=== PATIENT | male | born 1975 | race Caucasian/White ===

== ENCOUNTER 2017-01-05 04:15 | Emergency (ER) | payer BC ==
[2017-01-05] MEDS ORDERED: Morphine INJ* 4 MG/ML 1 ML SYRINGE IV ONE (05:03)
[2017-01-05] MEDS ORDERED: Ondansetron INJ* 2 MG/ML VIAL IV ONE (05:03)
[2017-01-05] MEDS ORDERED: NS 0.9% 1000 ML* 1,000 ML IV ONE (05:03)
[2017-01-05 05:26] LABS: Hematocrit 46 % (42-52); Hemoglobin 15.3 g/dl (14.0-18.0); Mean Corpuscular HGB Conc 33 g/dl (31-36); Mean Corpuscular Hemoglobin 29 pg (27-31); Mean Corpuscular Volume 88 fL (80-94); Mean Platelet Volume 8 um3 (7.4-10.4); Red Blood Count 5.24 10^6/ul (4.0-5.4); Red Cell Distribution Width 13 % (10.5-15); White Blood Count 12.3 10^3/ul (3.5-10.8)
[2017-01-05 05:43] LABS: Albumin 4.1 g/dL (3.2-5.2); BUN/Creatinine Ratio 14.4 (8-20); C Reactive Protein 4.64 mg/L (< 5.00); Calcium 9.5 mg/dL (8.6-10.3); EGFR African American 118.4 (>60); EGFR Non-African American 92.1 (>60); Magnesium 2.1 mg/dL (1.9-2.7); Potassium 4.2 mmol/L (3.5-5.0); Total Bilirubin 0.7 mg/dL (0.2-1.0); Total Protein 7.1 g/dL (6.4-8.9)
[2017-01-05 06:24] VITALS: BP 155/90
--- NOTE | 2017-01-19 23:46 | ED ---
Kenrick Berger Anna, scribed for Thomas Morel MD on 01/05/17 at 0427 . GI/ HPI - HPI Summary HPI Summary: Patient is a 41 y/o male coming to [facility] presenting with sudden onset of constant abdominal pain that began at 0300 this morning. He describes the severity of the pain as 4/10. The pain is discrete in the center of his abd. The pain was somewhat alleviated following one episode of nausea and emesis. He reports never having experienced similar pain before. The pain was not alleviated by moving around. Denies diarrhea, dysuria. Tonight he ate macaroni and cheese and a hot dog with mustard. - History of Current Complaint Stated Complaint: VOMITING/ABD PAIN Hx Obtained From: Patient Onset/Duration: Started Hours Ago, Still Present Timing: Constant Severity: Moderate Current Severity: Moderate - Allergy/Home Medications Allergies/Adverse Reactions: Allergies Allergy/AdvReac Type Severity Reaction Status Date / Time Jermyn Allergy Anaphylatic Verified 01/15/17 07:33 Shock PMH/Surg Hx/FS Hx/Imm Hx Endocrine/Hematology History: Denies: Hx Diabetes, Hx Thyroid Disease Cardiovascular History: Denies: Hx Hypertension Respiratory History: Denies: Hx Asthma, Hx Chronic Obstructive Pulmonary Disease (COPD) GI History: Denies: Hx Ulcer Infectious Disease History: Denies: Hx Hepatitis, Hx Human Immunodeficiency Virus (HIV) - Family History Known Family History: Negative: Diabetes - Social History Alcohol Use: Daily Alcohol Amount: 2-4 BEERS/DAY Hx Substance Use: Yes Substance Use Type: Reports: Marijuana Hx Tobacco Use: No Smoking Status (MU): Never Smoked Tobacco Have You Smoked in the Last Year: No Review of Systems Positive: Abdominal Pain, Vomiting, Nausea. Negative: Diarrhea Negative: dysuria All Other Systems Reviewed And Are Negative: Yes Physical Exam Vital Signs On Initial Exam: Initial Vitals Temp Pulse Resp BP Pulse Ox 98.7 F 78 16 150/96 98 01/05/17 04:39 01/05/17 04:39 01/05/17 04:39 01/05/17 04:39 01/05/17 04:39 Diagnostics - Vital Signs Vital Signs Temp Pulse Resp BP Pulse Ox 01/05/17 06:22 77 15 155/90 01/05/17 06:03 16 01/05/17 05:43 74 153/96 97 01/05/17 05:02 76 144/79 97 01/05/17 05:00 76 97 01/05/17 04:41 78 98 01/05/17 04:39 98.7 F 78 16 150/96 98 - Laboratory Lab Results: Lab Results 01/05/17 01/05/17 01/05/17 Range/Units 05:17 05:17 05:17 WBC 12.3 H (3.5-10.8) 10^3/ul RBC 5.24 (4.0-5.4) 10^6/ul Hgb 15.3 (14.0-18.0) g/dl Hct 46 (42-52) % MCV 88 (80-94) fL MCH 29 (27-31) pg MCHC 33 (31-36) g/dl RDW 13 (10.5-15) % Plt Count 147 L (150-450) 10^3/ul MPV 8 (7.4-10.4) um3 Neut % (Auto) 79.6 (38-83) % Lymph % (Auto) 12.1 L (25-47) % [place] % (Auto) 7.3 (1-9) % Eos % (Auto) 0.8 (0-6) % Baso % (Auto) 0.2 (0-2) % Absolute Neuts (auto) 9.8 H (1.5-7.7) 10^3/ul Absolute Lymphs (auto) 1.5 (1.0-4.8) 10^3/ul Absolute Monos (auto) 0.9 H (0-0.8) 10^3/ul Absolute Eos (auto) 0.1 (0-0.6) 10^3/ul Absolute Basos (auto) 0 (0-0.2) 10^3/ul Absolute Nucleated RBC 0 10^3/ul Nucleated RBC % 0 Sodium 138 (133-145) mmol/L Potassium 4.2 (3.5-5.0) mmol/L Chloride 105 (101-111) mmol/L Carbon Dioxide 28 (22-32) mmol/L Anion Gap 5 (2-11) mmol/L BUN 13 (6-24) mg/dL Creatinine 0.90 (0.67-1.17) mg/dL Est GFR ( Amer) 118.4 (>60) Est GFR (Non-Af Amer) 92.1 (>60) BUN/Creatinine Ratio 14.4 (8-20) Glucose 129 H (70-100) mg/dL Lactic Acid 1.6 (0.5-2.0) mmol/L Calcium 9.5 (8.6-10.3) mg/dL Magnesium 2.1 (1.9-2.7) mg/dL Total Bilirubin 0.70 (0.2-1.0) mg/dL AST 193 H (13-39) U/L ALT 150 H (7-52) U/L Alkaline Phosphatase 76 (34-104) U/L C-Reactive Protein 4.64 (< 5.00) mg/L Total Protein 7.1 (6.4-8.9) g/dL Albumin 4.1 (3.2-5.2) g/dL Globulin 3.0 (2-4) g/dL Albumin/Globulin Ratio 1.4 (1-3) Lipase 44 (11.0-82.0) U/L Result Diagrams: 17 05:17 0317 05:17 Lab Statement: Any lab studies that have been ordered have been reviewed, and results considered in the medical decision making process. Re-Evaluation - Re-Evaluation First Eval Re-Evaluation Time: 05:58 Change: Improved Comment: Patient rates current pain as 2/10. He will be discharged home with follow up with his PCP. GIGU Course/Dx - Course Assessment/Plan: Patient is a 41 y/o male coming to [facility] presenting with sudden onset of constant abdominal pain that began at 0300 this morning. He describes the severity of the pain as 4/10. The pain is discrete in the center of his abd. The pain was somewhat alleviated following one episode of nausea and emesis. He reports never having experienced similar pain before. The pain was not alleviated by moving around. Denies diarrhea, dysuria. Tonight he ate macaroni and cheese and a hot dog with mustard. Patient was given morphine, Zofran, and fluids in the ED. Labs reveal WBC of 12.3, glucose of 129, AST of 193, ALT of 150. The patient's pain has largely resolved in the ED. He will be discharged home with follow up from his PCP. - Diagnoses Provider Diagnoses: Abdominal pain Discharge - Discharge Plan Condition: Improved Disposition: HOME Patient Education Materials: Acute Nausea and Vomiting (ED), Abdominal Pain (ED ) Referrals: [facility] [Outside] Additional Instructions: Follow up with primary care physician within 48 hours. Return to the emergency department for changing or worsening symptoms. The documentation as recorded by the Kenrick botello Anna accurately reflects the service I personally performed and the decisions made by me, Thomas Morel MD.
== END 2017-01-05 06:22 | disposition home or self-care (01) ==
LOC: ED 04:15
DX: R10.9 Unspecified abdominal pain (principal); R11.2 Nausea with vomiting, unspecified; R11.10 Vomiting, unspecified
CPT/HCPCS: 36415; 80053; 83605; 83690; 83735; 85025; 86140; 96374; 96375; 99283; J2270; J2405

== ENCOUNTER → 2017-01-15 07:11 | Day surgery (SDC) | payer BC ==
--- NOTE | 2017-01-12 16:12 | HP ---
ADMISSION HISTORY AND PHYSICAL: DATE OF ADMISSION: 01/15/17 ATTENDING SURGEON: Thomsa Phillips MD (dictated by TERESITA Heller) CHIEF COMPLAINT: Symptomatic gallstones. 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 He describes the pain as sharp and steady without radiation and associated with one episode of vomiting at home. The pain did begin to ease off at that point. He felt bloated and gassy. He had had some macaroni and cheese the evening before but otherwise no other suspect food indigestion. He had not had any prior similar symptoms. He denies any particular darkening of the urine. He did present to the ED at which time lab work showed mild leukocytosis with left shift and elevation of his transaminases. The remaining liver function tests were normal as were his lipase and CRP. He did not have any imaging. He did not require any parenteral analgesics and was discharged to home. He followed up with Patricia Shah NP at the [place] office. Ultrasound was done in the office that day showing gallstones but without gallbladder wall thickening or pericholecystic fluid. The common bile duct was not well visualized. The patient was referred for surgical evaluation and seen by both myself and by Dr. Phillips today. After review of the history and workup , Dr. Phillips discussed with him the indications for gallbladder surgery, the risks, benefits, and alternatives as well as expected perioperative course. I will order repeat liver function tests for 01/12/17 and tentatively, the patient is scheduled for surgery on 01/15/17. He would like to proceed as scheduled with laparoscopic cholecystectomy. The patient has remained asymptomatic since the episode on 01/05/17 but has been maintained low fat diet. PAST MEDICAL HISTORY: Obesity, rheumatic fever as a child with a murmur, which has gradually disappeared in recent years. He did undergo echocardiogram under Dr. Cross a number of years ago, which he states was a normal study. He has also had history of nephrolithiasis x1 but no problems in recent years. He does have GERD symptoms and utilizes [id number] antacids approximately 4 times a week. This seems to coincide with his weight gain. PAST SURGICAL HISTORY: [place] teeth extraction. No problems reported. CURRENT MEDICATIONS: He has an EpiPen for strawberry allergies. He also is currently taking probiotic though states that is causing some diarrhea. DRUG ALLERGIES: None known. FAMILY HISTORY: Positive for gallbladder disease in his father and also had pancreatitis. There is no known family history of anesthesia problems, bleeding , or clotting disorder. SOCIAL HISTORY: The patient is and has a 9-month-old child. 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 He drinks on average 2 to 3 beers per day. He denies tobacco use, but does smoke marijuana on occasion. REVIEW OF SYSTEMS: General: No recent constitutional symptoms or acute illnesses other than described in the HPI. He states that his weight overall is stable. Cardiovascular: He has been monitored in the past for hypertension but has never required treatment. He denies chest pain or palpitations. He has a past history of rheumatic fever and heart murmur, which has gradually disappeared. Respiratory: No history of asthma, chronic cough, or shortness of breath. GI: As above per HPI. No additions. : No problems reported. Endocrine: No diabetes or thyroid dysfunction. PHYSICAL EXAMINATION GENERAL: Well-nourished, obese male, in no acute distress. VITAL SIGNS: Height 6 feet 2 inches, weight 285 pounds, BMI 36.6, temperature 98.7, blood pressure 140/88, pulse 72, respirations 18. HEENT: Pupils equal, round, and reactive. EOMs intact. No conjunctival pallor. No scleral icterus. Oropharynx: Teeth in good repair. No intraoral lesions. NECK: No lymphadenopathy, thyromegaly, or masses. LUNGS: Clear to auscultation. No rales or wheezes. HEART: Regular rate and rhythm. No murmur appreciated. ABDOMEN: Obese, soft, nontender to palpation. No palpable masses or organomegaly based on body habitus. EXTREMITIES: No edema. GENITALIA AND RECTAL: Not done. The patient states that recent hernia exam was negative. He reports no current rectal problems. BACK: No spinous process or CVA tenderness. NEUROLOGICAL: Grossly intact. SKIN: Warm and dry. No suspicious rashes or lesions noted. IMPRESSION: Symptomatic cholelithiasis. PLAN: Laparoscopic cholecystectomy. Repeat liver function tests for 01/12/17. TERESITA INFANTE CC: Hafsa Patino; Patricia Shah NP; [facility]* [id number]/[facility] #: [id number] MTDD
[~2017-01-15 07:11] MED LIST: Buffered Lidocaine 1% SYRIN* 3 ML/SYR SYRINGE INTRADERM ONE; Bupivacaine 0.25% EPI 200,000* 30 ML SDV ONE; Dexamethasone IV* 4 MG/ML 1 ML (4 MG) IV SLOW PU ONE; Dexamethasone IV* 4 MG/ML 1 ML (4 MG) ONE; DiMENhydriNATE IV* 50 MG/ML VIAL IV PUSH PRN; Famotidine IV* 10 MG/ML 2 ML (20 mg) IV ONE; Famotidine IV* 10 MG/ML 2 ML (20 mg) ONE; Glycopyrrolate IV* 0.2 MG/ML 1 ML VIAL ONE; HYDROmorphone* 1 MG/ML 1 ML SYR IV PRN; KETAMINE HCL* 50 MG/ML 10 ML VIAL ONE; Ketorolac INJ* 30 MG/ML 1 ML VIAL ONE; Labetalol IV* 5 MG/ML 20 ML VIAL ONE; Lidocaine 1% INJ* 10 MG/ML 30 ML SDV ONE; Midazolam* 1 MG/ML 2 ML VIAL (2 MG) ONE; Neostigmine Methylsulfate* 2 MG/2 ML SYRINGE ONE; Ondansetron INJ* 2 MG/ML VIAL ONE; Propofol* 0 MG/0 ML BTL ONE; Propofol* 10 MG/ML 20 ML BTL IV PUSH ONE; Rocuronium* 10 MG/ML VIAL ONE; Succinylcholine* 20 MG/ML 10 ML VIAL ONE; ceFAZolin 1 GM in Dextrose (*) 1 GM/50 ML BAG IVPB ONE; ceFAZolin 2 GM PREMIX(*) 2 GM/50 ML BAG IVPB ONE; fentaNYL* 50 MCG/ML 2 ML VIAL (100 MCG VIAL) ONE; oxyCODONE/Acetamin 5/325 MG* TAB ONE; oxyCODONE/Acetamin 5/325 MG* TAB PO PRN
[2017-01-15] MEDS: fentaNYL* 50 MCG/ML 2 ML VIAL (100 MCG VIAL) IV PRN ×2 (11:39→11:58)
[2017-01-15 13:14] VITALS: BP 132/76
--- NOTE | 2017-01-16 06:10 | OP ---
DATE OF OPERATION: 01/15/17 - [facility] DATE OF : 71 SURGEON: Thomas Phillips MD INSTALLATION SERVICE REPRESENTATIVE: Veda Watson NP ANESTHESIOLOGIST: Dr. Shin. ANESTHESIA: General anesthetic. PRE-OP DIAGNOSIS: Cholelithiasis. POST-OP DIAGNOSIS: Cholelithiasis. OPERATIVE PROCEDURE: Laparoscopic cholecystectomy. DESCRIPTION OF PROCEDURE: The patient was supine on the operative table. After adequate general anesthetic, compression stockings, Gabrielle Hugger warmer and intravenous antibiotics, the abdomen was prepped with antiseptic, draped in a sterile fashion. Local infiltrative anesthesia was administered. Small umbilical incision was created. Blunt port cannula was placed. Insufflation was carried out with carbon dioxide. The gallbladder was tented up. Areolar tissue was taken down with the cystic duct and cystic artery, which was readily identified, clipped and divided. There were anterior and posterior branches of the cystic artery, which were both clipped and divided. The gallbladder was taken off the liver bed without difficulty. There was small amount of bile spillage. No stone spillage. The gallbladder was placed in retrieval bag and brought out through the subxiphoid site without difficulty. The operative field was well irrigated with saline solution. Free fluid was suctioned out. Hemostasis was confirmed. The cannulae removed, pneumoperitoneum allowed to escape. Umbilical fascia was closed with 0 Polysorb and skin with 5-0 Polysorb in all cases followed by Steri-Strips. He tolerated the procedure well, was awaken, extubated, and brought to recovery in good condition. There were no complications. No drains. Pathologic specimen was gallbladder. Sponge and instruments counts correct. Estimated blood loss 75 mL. CC: [facility]* [id number]/[facility] #: [id number] MTDD
== END | disposition home or self-care (01) ==
LOC: OR 07:11
PROVIDERS: ATTEND Surgery
DX: K80.10 Calculus of gallbladder with chronic cholecystitis without obstruction (principal); E66.9 Obesity, unspecified; Z68.35 Body mass index [BMI] 35.0-35.9, adult
CPT/HCPCS: 88304; A9270-GY; J0330; J0690; J1100; J1885; J2001; J2250; J2405; J2704; J3010

== ENCOUNTER 2020-01-03 12:51 | Emergency (ER) | payer BC ==
--- NOTE | 2020-01-03 13:34 | ED ---
Headache - HPI Summary HPI Summary: Patient is a 44 y/o M presenting to the ED for a chief complaint of headache, blurred vision, and visual changes that began on 01/02/20. 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 The visual change is described as something in his peripheral vision that moved to the center of his vision. The blurred vision and visual changes lasted for 3-4 hours before resolving. Shortly after the blurred vision and visual changes began, he noticed he had a headache, chest pain, and left eye twitching. He had another episode of the left eye twitching on 01/03/20. Upon going home after work, the headache resolved. Currently, patient states the headache, blurred vision, visual changes, and chest pain are resolved. He notes intermittent bilateral UE numbness that occurs after sleeping at night. No aggravating or alleviating factors are reported. Patient was sent by his PCP for further evaluation. Any significant PMHx or FMHx is denied. Recently, patient was seen by an returned case inspector for reading glasses. - History Of Current Complaint Chief Complaint: EDEyeProblem Stated Complaint: VISION ISSUES PER PT Time Seen by Provider: 01/03/20 13:11 Hx Obtained From: Patient Onset/Duration: Sudden Onset, Resolved Initially Headache Was: Moderate Currently Pain Is: Moderate Timing: Intermittent, Lasting:, Hours Character: Typical Headache Aggravating Factor: Nothing Allevating Factors: Nothing Associated Signs And Symptoms: Visual Changes - Allergies/Home Medications Allergies/Adverse Reactions: Allergies Allergy/AdvReac Type Severity Reaction Status Date / Time MS [place] [[place]] Allergy Severe Anaphylatic Verified 01/03/20 13:37 Shock Home Medications: Home Medications NK [No Home Medications Reported] 01/03/20 [History Confirmed 01/03/20] PMH/Surg Hx/FS Hx/Imm Hx Previously Healthy: Yes Endocrine/Hematology History: Denies: Hx Diabetes, Hx Thyroid Disease Cardiovascular History: Reports: Hx Rheumatic Fever - as a child Denies: Hx Hypertension Respiratory History: Denies: Hx Asthma, Hx Chronic Obstructive Pulmonary Disease (COPD) GI History: Reports: Other GI Disorders - gallbladder Denies: Hx Ulcer Sensory History: Denies: Hx Legally Blind, Hx Deafness Opthamlomology History: Denies: Hx Legally Blind EENT History: Denies: Hx Deafness - Surgical History Surgical History: Yes Surgery Procedure, Year, and Place: wisdom teeth extraction - - [place] Hx Anesthesia Reactions: No - pt denies Infectious Disease History: No Infectious Disease History: Denies: Hx Hepatitis, Hx Human Immunodeficiency Virus (HIV), Traveled Outside the [place] in Last 30 Days - Family History Known Family History: Negative: Diabetes - Social History Occupation: Employed Full-time Lives: With Family Alcohol Use: Daily Alcohol Amount: 2 BEERS/DAY Hx Substance Use: Yes Substance Use Type: Reports: Marijuana Substance Use Comment - Amount & Last Used: reports once per week Hx Tobacco Use: No Smoking Status (MU): Never Smoked Tobacco Have You Smoked in the Last Year: No Review of Systems Positive: Blurred Vision - Resolved, Other - Positive blurred vision and left eye twitching, resolved Positive: Chest Pain - Resolved Positive: Headache - Resolved All Other Systems Reviewed And Are Negative: Yes Physical Exam - Summary Physical Exam Summary: Constitutional: Well-developed, Well-nourished, Alert. (-) Distressed Skin: Warm, Dry HENT: Normocephalic; Atraumatic Eyes: Conjunctiva normal, PERRL. EOMI. Visual velazquez intact. VA 20/20 OD OS Neck: Musculoskeletal ROM normal neck. (-) JVD, (-) Stridor, (-) Nuchal rigidity Cardio: Rhythm regular, rate normal, Heart sounds normal; Intact distal pulses; Radial pulses are 2+ and symmetric. (-) Murmur Pulmonary/Chest wall: Effort normal. (-) Respiratory distress, (-) Wheezes, (-) Rales Abd: Soft, (-) tenderness, (-) Distension, (-) Guarding, (-) Rebound Musculoskeletal: (-) Edema Neuro: Alert, Oriented x3 Psych: Mood and affect Normal Triage Information Reviewed: Yes Vital Signs On Initial Exam: Initial Vitals Temp Pulse Resp BP Pulse Ox 98.2 F 97 16 178/103 98 01/03/20 12:52 01/03/20 12:52 01/03/20 12:52 01/03/20 12:52 01/03/20 12:52 Vital Signs Reviewed: Yes Procedures - Sedation Patient Received Moderate/Deep Sedation with Procedure: No Diagnostics - Vital Signs Vital Signs Temp Pulse Resp BP Pulse Ox 01/03/20 13:12 104 98 01/03/20 12:52 98.2 F 97 16 178/103 98 - Laboratory Result Diagrams: 01/03/20 13:30 01/03/20 13:30 Lab Statement: Any lab studies that have been ordered have been reviewed, and results considered in the medical decision making process. - Radiology Chest X-ray Radiology Interpretation Completed By: Radiologist Summary of Radiographic Findings: Chest X-ray IMPRESSION: NO ACTIVE CARDIOPULMONARY DISEASE. Reviewed by Dr. Ashley. - EKG 13:29 Cardiac Rate: NL - 90 BPM EKG Rhythm: Sinus Rhythm ST Segment: Normal Ectopy: None Summary of EKG Findings: An EKG at 13:29 reveals normal sinus rhythm with 90 BPM , T wave inversion in lead III, nml axis, nml intervals. No STEMI. No acute changes. ED physician has reviewed and interpreted this EKG. Headache Course/Dx - Course Course Of Treatment: 44 y/o male p/w several symptoms. 1) visual changes a/w headache now resolved, most c/w occular migraine, EOMI, visual velazquez intact. VA : 20/20 OD OS. 2) CP - episode of CP after headache, patient reports 2/2 stress. CXR normal. Trop negative x1. EKG TWI lead III. Do not suspect ACS. Heart score: 2, low risk. 3) reporting intermittent arm paresthesias at night, none now. No neck pain. Can f/u w PCP - Diagnoses Provider Diagnoses: Chest pain, Ocular migraine, Elevated blood sugar - Physician Notifications Discussed Care Of Patient With: Ivana Lutz - At 14:01, Dr. Ivana Lutz recommends outpatient follow up. Time Discussed With Above Provider: 14:01 Instructed by Provider To: Have Pt Call For Appt. Discharge ED - Sign-Out/Discharge Documenting (check all that apply): Patient Departure - Discharge - Discharge Plan Condition: Stable Disposition: HOME Patient Education Materials: Chest Pain (ED), Migraine Headache (ED) Referrals: Joey Goss MD [Primary Care Provider] - Additional Instructions: You were seen in the emergency department for a migraine, visual disturbance and chest pain. Your EKG (heart tracing), labs and chest x-ray did not show any cause for pain. your blood sugar was slightly high here please have it rechecked in the office. Important that you follow up with you primary care doctor in the next 1-2 days to help schedule an outpatient stress test. Please return to the emergency department for continued chest pain, trouble breathing, passing out, or if you're concerned. - Billing Disposition and Condition Condition: STABLE Disposition: Home - Attestation Statements Document Initiated by Chaz: Yes Documenting Scribe: Rosemarie Sanders Provider For Whom Chaz is Documenting (Include Credential): Salo Ashley MD Scribe Attestation: I, Rosemarie Sanders, scribed for Salo Ashley MD on 01/04/20 at 1046. Scribe Documentation Reviewed: Yes Provider Attestation: The documentation as recorded by the Rosemarie botello accurately reflects the service I personally performed and the decisions made by , Salo Ashley MD Status of Scribe Document: Viewed
[2020-01-03 13:51] LABS: ABS Lymphocytes 1.4 10^3/ul (1.0-4.8); ABS Monocytes 0.3 10^3/ul (0-0.8); ABS Neutrophils 4.6 10^3/ul (1.5-7.7); Eosinophil % 0.6 %; Hematocrit 46 % (42-52); Hemoglobin 15.9 g/dL (14.0-18.0); Lymphocyte % 22.1 %; Mean Corpuscular HGB Conc 35 g/dL (31-36); Mean Corpuscular Hemoglobin 31 pg (27-31); Mean Corpuscular Volume 88 fL (80-94); Mean Platelet Volume 8.4 fL (7.4-10.4); Nucleated Red Blood Cells % 0.1; Platelet Count 179 10^3/uL (150-450); Red Blood Count 5.17 10^6 /uL (4.18-5.48); Red Cell Distribution Width 13 % (10-15); White Blood Count 6.4 10^3/uL (3.5-10.8)
[2020-01-03 14:03] LABS: Troponin I 0.01 ng/mL (<0.03)
[2020-01-03 14:04] LABS: Albumin 4.6 g/dL (3.2-5.2); Albumin/Globulin Ratio 1.8 (1-3); BUN/Creatinine Ratio 10.4 (8-20); Calcium 9.3 mg/dL (8.6-10.3); EGFR Non-African American 75.2 (>60); Globulin 2.6 g/dL (2-4); Potassium 3.6 mmol/L (3.5-5.0); Total Bilirubin 0.5 mg/dL (0.2-1.0); Total Protein 7.2 g/dL (6.4-8.9)
[2020-01-03 15:19] VITALS: BP 147/112
== END 2020-01-03 15:17 | disposition home or self-care (01) ==
LOC: ED 12:51
DX: R07.89 Other chest pain (principal); G43.B0 Ophthalmoplegic migraine, not intractable; R73.9 Hyperglycemia, unspecified; Z91.018 Allergy to other foods
CPT/HCPCS: 36415; 71046; 80053; 84484; 85025; 93005; 99282

== ENCOUNTER → 2020-01-04 13:26 | Emergency (ER) | payer BC ==
[~2020-01-04 13:26] MED LIST changes: -Buffered Lidocaine 1% SYRIN* 3 ML/SYR SYRINGE INTRADERM ONE; -Bupivacaine 0.25% EPI 200,000* 30 ML SDV ONE; -Dexamethasone IV* 4 MG/ML 1 ML (4 MG) IV SLOW PU ONE; -Dexamethasone IV* 4 MG/ML 1 ML (4 MG) ONE; -DiMENhydriNATE IV* 50 MG/ML VIAL IV PUSH PRN; -Famotidine IV* 10 MG/ML 2 ML (20 mg) IV ONE; -Famotidine IV* 10 MG/ML 2 ML (20 mg) ONE; +Gadoteridol* (CONTRAST) 279.3 MG/ML 10 ML IV ONE; -Glycopyrrolate IV* 0.2 MG/ML 1 ML VIAL ONE; -HYDROmorphone* 1 MG/ML 1 ML SYR IV PRN; -KETAMINE HCL* 50 MG/ML 10 ML VIAL ONE; -Ketorolac INJ* 30 MG/ML 1 ML VIAL ONE; -Labetalol IV* 5 MG/ML 20 ML VIAL ONE; -Lidocaine 1% INJ* 10 MG/ML 30 ML SDV ONE; -Midazolam* 1 MG/ML 2 ML VIAL (2 MG) ONE; -Neostigmine Methylsulfate* 2 MG/2 ML SYRINGE ONE; -Ondansetron INJ* 2 MG/ML VIAL ONE; -Propofol* 0 MG/0 ML BTL ONE; -Propofol* 10 MG/ML 20 ML BTL IV PUSH ONE; -Rocuronium* 10 MG/ML VIAL ONE; -Succinylcholine* 20 MG/ML 10 ML VIAL ONE; -ceFAZolin 1 GM in Dextrose (*) 1 GM/50 ML BAG IVPB ONE; -ceFAZolin 2 GM PREMIX(*) 2 GM/50 ML BAG IVPB ONE; -fentaNYL* 50 MCG/ML 2 ML VIAL (100 MCG VIAL) ONE; -oxyCODONE/Acetamin 5/325 MG* TAB ONE; -oxyCODONE/Acetamin 5/325 MG* TAB PO PRN
--- NOTE | 2020-01-04 13:50 | ED ---
Neurological HPI - HPI Summary HPI Summary: 44 year old M arriving via private car with complains of worsening left eye twitching, visual changes, headache since last night. Patient reports difficulty talking and forming sentences since Sunday 12/31. He states his left side "did not perform up to speed and was not as coordinated as his right side" yesterday 01/02. states patient was looking for something in the fridge last night and was unable to see it because it was in his peripheral visual field. Patient reports having slow thoughts, some confusion. He states he is making more mistakes and having to reread things more than usual. Patient denies chest pain. Symptoms aggravated by nothing. Symptoms alleviated by nothing. Was seen here yesterday for similar symptoms. Was referred to the ED by his primary care provider to r/o brain tumor. Medications reviewed. Allergies reviewed. - History of Current Complaint Chief Complaint: EDNeurologicalDeficit Stated Complaint: SPEECH AND NEURO ISSUES PER PT Time Seen by Provider: 01/04/20 13:27 Hx Obtained From: Patient Onset/Duration: Still Present Timing: Constant Current Severity: None Pain Intensity: 0 Pain Scale Used: 0-10 Numeric Aggravating: Nothing Alleviating: Nothing - Allergy/Home Medications Allergies/Adverse Reactions: Allergies Allergy/AdvReac Type Severity Reaction Status Date / Time strawberry Allergy Anaphylatic Verified 01/04/20 13:32 Shock Home Medications: Home Medications NK [No Home Medications Reported] 01/04/20 [History Confirmed 01/04/20] PMH/Surg Hx/FS Hx/Imm Hx Endocrine/Hematology History: Denies: Hx Diabetes, Hx Thyroid Disease Cardiovascular History: Reports: Hx Rheumatic Fever - as a child Denies: Hx Hypertension Respiratory History: Denies: Hx Asthma, Hx Chronic Obstructive Pulmonary Disease (COPD) GI History: Reports: Other GI Disorders - gallbladder Denies: Hx Ulcer Sensory History: Denies: Hx Legally Blind, Hx Deafness Opthamlomology History: Denies: Hx Legally Blind - Surgical History Surgery Procedure, Year, and Place: wisdom teeth extraction - - [place] Hx Anesthesia Reactions: No - pt denies Infectious Disease History: No Infectious Disease History: Denies: Hx Hepatitis, Hx Human Immunodeficiency Virus (HIV), Traveled Outside the [place] in Last 30 Days - Family History Known Family History: Negative: Diabetes - Social History Alcohol Use: Daily Alcohol Amount: 2 BEERS/DAY Hx Substance Use: Yes Substance Use Type: Reports: Marijuana Substance Use Comment - Amount & Last Used: reports once per week Hx Tobacco Use: No Smoking Status (MU): Never Smoked Tobacco Have You Smoked in the Last Year: No Review of Systems Positive: Other - left eye twitching, visual changes Negative: Chest Pain Neurological/Mental Status: Other - difficult talking and forming sentences, slow thoughts, confusion, making mistakes, having to reread things Positive: Headache, Weakness - left side All Other Systems Reviewed And Are Negative: Yes Physical Exam - Summary Physical Exam Summary: Constitutional: Well-developed, Well-nourished, Alert. (-) Distressed Skin: Warm, Dry HENT: Normocephalic; Atraumatic Eyes: Conjunctiva normal, PERRL. EOMI intact Neck: Musculoskeletal ROM normal neck. (-) JVD, (-) Stridor, (-) Nuchal rigidity Cardio: Rhythm regular, rate normal, Heart sounds normal; Intact distal pulses; Radial pulses are 2+ and symmetric. (-) Murmur Pulmonary/Chest wall: Effort normal. (-) Respiratory distress, (-) Wheezes, (-) Rales Abd: Soft, (-) tenderness, (-) Distension, (-) Guarding, (-) Rebound Musculoskeletal: (-) Edema Neuro: Alert, Oriented x3, CN 2-12 grossly intact, no dysmetria. Ambulates w steady gait Psych: Mood and affect Normal GCS: 15 Triage Information Reviewed: Yes Vital Signs On Initial Exam: Initial Vitals Temp Pulse Resp BP Pulse Ox 97.1 F 89 16 175/102 98 01/04/20 13:27 01/04/20 13:27 01/04/20 13:27 01/04/20 13:27 01/04/20 13:27 Vital Signs Reviewed: Yes Procedures - Sedation Patient Received Moderate/Deep Sedation with Procedure: No Diagnostics - Vital Signs Vital Signs Temp Pulse Resp BP Pulse Ox 01/04/20 13:27 97.1 F 89 16 175/102 98 - Laboratory Lab Statement: Any lab studies that have been ordered have been reviewed, and results considered in the medical decision making process. - CT BRAIN CT Interpretation Completed By: Radiologist - IMPRESSION: There is no evidence of intracranial mass or hemorrhage is noted. ED PHYSICIAN HAS REVIEWED THIS IMAGING REPORT. - Additional Comments Diagnostic Additional Comments: MRI BRAIN shows, per radiologist: UNREMARKABLE MRI OF THE BRAIN. NO ABNORMAL ENHANCEMENT. ED physician has reviewed this imaging report. Re-Evaluation - Re-Evaluation First Eval Re-Evaluation Time: 17:35 Comment: updated patient on MRI results. Course/Dx - Course Course Of Treatment: 44 y/o M w hx of recent headache and visual disturbance. - unremarkable neuro exam. Visual acuity and visual velazquez intact yesterday. Given patient's reported symptoms, check a CT head and get neurology consult. - CT brain negative, MRI obtained and unremarkable. Unclear cause of symptoms, can f/u outpatient w PCP - Diagnoses Provider Diagnoses: Visual disturbance, Headache - Physician Notifications Discussed Care Of Patient With: Ivana Lutz Time Discussed With Above Provider: 13:40 Instructed by Provider To: MD Will See In ED Discharge ED - Sign-Out/Discharge Documenting (check all that apply): Patient Departure - Discharge Plan Condition: Stable Disposition: HOME Patient Education Materials: Acute Headache (ED), Blurred Vision (ED) Referrals: Ivana Lutz MD [Medical Doctor] - If Needed Additional Instructions: You were seen in the emergency department for visual disturbance and headache. Your CT scan and MRI do not show cause for any of your symptoms. Please follow up with neurology as needed. Please follow up with your primary care doctor in next 2-3 days and return to emergency department for worsening does, severe headaches, confusion, or concerning symptoms. It was a pleasure taking care of you today. - Billing Disposition and Condition Condition: STABLE Disposition: Home - Attestation Statements Document Initiated by Chaz: Yes Documenting Scribe: Yuliana Jimenez Provider For Whom Chaz is Documenting (Include Credential): Salo Ashley MD Scribe Attestation: I, Yuliana Jimenez, scribed for Salo Ashley MD on 01/04/20 at 1904. Scribe Documentation Reviewed: Yes Provider Attestation: The documentation as recorded by the Yuliana botello accurately reflects the service I personally performed and the decisions made by me, Salo Ashley MD Status of Scribe Document: Viewed
[2020-01-04 16:49] LABS: TSH (Thyroid Stimulating Horm) 1.91 mcIU/mL (0.34-5.60)
--- NOTE | 2020-01-04 16:51 | CONS ---
NEUROLOGY CONSULTATION NOTE: DATE OF CONSULT: 01/04/20 CONSULTING PROVIDER: Dr. Ashley. REASON FOR CONSULT: Intermittent headaches, slurred speech. CHIEF COMPLAINT: Headaches. 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 The patient stated that he was trying to have a conversation with a friend, but his friend could not understand him. He seemed to be forming words that did not make any sense. He also was having trouble with his speech and it sounded slurred. On Thursday morning, the patient developed a headache with visual obscuration in both eyes. His left lower lid was fluttering. It was minimally noticeable. The headache was described as a bifrontal dull pain, that is 5/10 in severity, it went away with aspirin therapy. The pain gradually radiated to the temporal as well as the occipital region. He denied any nausea, vomiting, photophobia, or phonophobia. Thursday, the patient went to his primary care physician to be evaluated for difficulty communicating. The physician noted that the patient had mild loss of coordination on the left side. The patient was advised to go to the ED for further evaluation. The patient came to [facility] Emergency Department on 01/03/20 and was diagnosed as having retinal migraine. He was discharged home. Today, the patient came back because he was having trouble thinking straight. He caught several mistakes in the lab that he has made over the last few days. He was mixing acid and base substances, which he would never typically do. Now, he is finding it hard to communicate, but his who is at bedside stated that the patient is speaking quite rapidly. He has poor patience and is frustrated all the time over the last few days. The patient kept repeating that he has 3 young children at home that wake him up in the morning screaming. He feels slightly overwhelmed. He is undergoing some financial stressors, but that is not unusual. The patient denied any symptoms at this time. He denied any headaches, visual disturbance, slurred speech, word-finding difficulty, weakness, or paresthesias. He denied any chest pain, shortness of breath, or palpitations. He denied any abdominal pain, nausea, vomiting, or impairment in his bowel or bladder functions. He denied any recent falls or head injuries. PAST MEDICAL HISTORY: Borderline hypertension; Overweight. PAST SURGICAL HISTORY: Cholecystectomy. HOME MEDICATIONS: None. ALLERGIES: STRAWBERRY. FAMILY HISTORY: There is no family history of stroke or seizures. 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 He denied any tobacco use. He drinks approximately 2 to 4 beers a day and a little more on the weekend. He did not consume a large amount of alcohol this past weekend though. He is a staff development coordinator. He has 3 healthy children. REVIEW OF SYSTEMS: A 14-point review of systems was obtained and otherwise negative except for what was mentioned in the HPI. PHYSICAL EXAM: Vitals: Temperature 97.1, pulse rate 89, oxygen saturation of 98%, blood pressure of initially 175/10 but dropped to 157/94. General: Well- nourished, well-developed man, in no acute distress. He is overweight. Head: Atraumatic, normocephalic without any obvious abnormality. Neck is supple and symmetrical with no carotid bruits. Cardiovascular: Regular rate and rhythm with normal S1, S2. Chest: Clear to auscultation bilaterally with no wheezing or rhonchi. Extremities: Normal range of motion. Skin: No skin lesions or lacerations. Psych: Affect is broad, normal mood. Easy to establish rapport. Neurological Examination: Mental Status: Awake, alert, and oriented to person , place, time, and general circumstances. Speech and language including repetition and comprehension were assessed and found to be normal. Cranial Nerves: Pupils are equal, round, and reactive to light. Extraocular muscles are intact. Normal sensation in the face bilaterally. No facial asymmetry. Tongue is symmetrical and midline with no atrophy or fasciculation. Motor Examination: 5/5 strength in the upper and lower extremities. Normal tone throughout. Sensation intact to light touch and pinprick throughout. Vibration and proprioception are intact at the great toes. Reflexes 2+ in the biceps bilaterally, triceps bilaterally, and brachioradialis; 1+ at the knees and ankles bilaterally. Gait: Normal stance and gait. No ataxia. DIAGNOSTIC STUDIES/LAB DATA: CT of the head without contrast showed no evidence of acute intracranial abnormality. ASSESSMENT AND RECOMMENDATIONS: Mr. Sincere Flaherty is a 44-year-old right- handed man who presents with constellation of symptoms of word-finding difficulty, headaches, eyelid fluttering, and intermittent behavioral changes. The patient has no focal neurological deficits on examination. He was sent here with a concern he could possibly have either a brain tumor or stroke. Given my assessment, the patient's clinical presentation, and examination findings, the patient has symptomatic hypertensive urgency. He did present with a slightly elevated blood pressure of 175 on arrival to the ED. Other differential diagnosis include mild demyelinating disease, posterior reversible leukoencephalopathy, or metabolic disturbance such as vitamin B12 deficiency or thyroid disease. He does also explore in the [place], so he is exposed to ticks; therefore, we should evaluate him for Lyme disease. I have ordered an MRI of the brain with and without contrast that can be done in the ED if possible. If it's negative, there is no further workup needed as an inpatient at this time. He has been having multiple constellation of symptoms that would not really localize to one vascular distribution. Therefore , I do not think he has transient ischemic attack, I do not think he also had a stroke. I have ordered a vitamin B12, TSH, and a Lyme screen. I have discussed with the ER team to control his blood pressure before discharge. If there is any abnormality on the MRI, for instance a demyelinating lesion that is enhancing then we should admit him for further evaluation. I discussed these recommendations with the patient and his spouse at bedside. 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 I discussed these recommendations with Dr. Ashley, who was amenable to the plan. I will continue to follow with the results. [id number]/[facility] #: [id number] ADDENDUM: B12 is low at 162. 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 I advised him to contact his PCP and get at least one IM injection of cyanocobalamin and to take oral cyanocobalamin 1,000 mcg daily. He should have his B12 rechecked in 6 months. We are still waiting for the Lyme screen. I will have him follow-up with us in the clinic in 6-8 weeks. Ivana Lutz MD 01/05/2020 09:10 [facility]
[2020-01-04 17:57] VITALS: BP 151/102
== END | disposition home or self-care (01) ==
LOC: ED 13:26
DX: H53.9 Unspecified visual disturbance (principal); R51 Headache; R46.89 Other symptoms and signs involving appearance and behavior; R41.0 Disorientation, unspecified; Z91.018 Allergy to other foods
CPT/HCPCS: 36415; 70450; 70553; 82607; 84443; 86618; 99283; A9579